=== PATIENT | male | born 2000 | race Two or more races ===

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

== ENCOUNTER 2024-02-19 09:28 | Emergency (ER) | payer OTHER ==
[~2024-02-19] VITALS: Ht 175.3 cm; Wt 88.5 kg
[2024-02-19 09:59] VITALS: BP 126/85; O2SAT 100
[2024-02-19] MEDS ORDERED: BUTALB/ACETAMINOPHEN/CAFFEINE 1 TAB TABLET PO ONE (12:19)
[2024-02-19 13:37] LABS: HEMATOCRIT 45.1 % (39.0-48.0); HEMOGLOBIN 15.7 g/dL (13-16.00); MEAN CELL VOLUME 84.3 fL (80.0-100.00); MEAN CORPUSCULAR HEMOGLOBIN 29.3 pg (27.00-32.0); MEAN CORPUSCULAR HGB CONC 34.8 g/dl (32.0-36.0); PLATELET COUNT 186 K/uL (150-450); RED BLOOD COUNT 5.35 M/uL (4.00-6.00); RED CELL DISTRIBUTION WIDTH 13.9 % (11.5-14.5)
== END 2024-02-19 15:25 | disposition home or self-care (01) ==
LOC: ER 09:30
PROVIDERS: General Practice
DX: R07.89 Other chest pain (principal); R51.9 Headache, unspecified; Z20.822 Contact with and (suspected) exposure to COVID-19